=== PATIENT | female | born 1965 | race Caucasian/White ===

== ENCOUNTER 2018-08-21 23:01 | Emergency (ER) | payer BC ==
[~2018-08-21] VITALS: Ht 154.9 cm; Wt 80.0 kg
[2018-08-21 23:07] VITALS: Ht 154.9 cm; Wt 80.0 kg
[2018-08-22] MEDS ORDERED: KETOROLAC 30 MG INJ IM STA (00:54)
[2018-08-22] MEDS ORDERED: CYCLOBENZAPRINE 10 MG TAB PO ONE (01:00)
[2018-08-22] MEDS ORDERED: IBUP-1542 PO (01:19)
[2018-08-22] MEDS ORDERED: CYCL10TA7 PO (01:19)
[2018-08-22 01:53] VITALS: BP 115/72; PULSE 70; RESP 18
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
== END 2018-08-22 01:54 | disposition home or self-care (01) ==
LOC: FTE 23:01
DX: S13.4XXA Sprain of ligaments of cervical spine, initial encounter (principal); F17.210 Nicotine dependence, cigarettes, uncomplicated; V49.59XA Passenger injured in collision with other motor vehicles in traffic accident, initial encounter
CPT/HCPCS: 81025; J1885; Z7610; 96372